=== PATIENT | male | born 1955 | race Caucasian/White ===

== ENCOUNTER 2018-05-10 21:36 | Emergency (ER) | payer SELFPAY ==
--- NOTE | 2018-05-10 22:00 | EDM.PDOC ---
ED HPI GENERAL MEDICAL PROBLEM - General Chief Complaint: Gastrointestinal Problem Stated Complaint: AIR IN STOMACH Time Seen by Provider: 05/10/18 22:00 Source of Information: Reports: Patient, RN, RN Notes Reviewed History Limitations: Reports: Other (forgetful) - History of Present Illness INITIAL COMMENTS - FREE TEXT/NARRATIVE: Pt presents to the ER with c/o abdominal distention. He denies pain. States this has been happening over the past 2 weeks. He states he last had a BM today , has been having runny diarrhea. Patient denies fever or chills, N/V. He denies chest pains or SOB. He states this has not happened to him in the past. Patient states he thinks a needle needs to be put in his belly to let air out. Onset: Gradual Location: Reports: Abdomen Quality: Reports: Pressure Severity: Moderate Improves with: Reports: None Worsens with: Reports: None - Related Data Allergies Allergy/AdvReac Type Severity Reaction Status Date / Time No Known Allergies Allergy Verified 05/10/18 21:40 Home Meds: Home Meds Fenofibrate Nanocrystallized [Fenofibrate] 145 mg PO DAILY 05/10/18 [History] QUEtiapine Fumarate [Quetiapine Fumarate] 200 mg PO BID 05/10/18 [History] fluPHENAZine decanoate [Fluphenazine Decanoate] 1 injection IM Q14D 05/10/18 [ History] predniSONE [Prednisone] 20 mg PO BID 05/10/18 [History] traZODone HCl [Trazodone HCl] 100 mg PO BEDTIME 05/10/18 [History] Past Medical History Psychiatric History: Reports: Anxiety, Depression Social & Family History - Family History Family Medical History: Noncontributory - Tobacco Use Smoking Status *Q: Current Every Day Smoker Years of Tobacco use: 48 Packs/Tins Daily: 1 Used Tobacco, but Quit: No - Caffeine Use Caffeine Use: Reports: Soda - Recreational Drug Use Recreational Drug Use: No ED ROS GENERAL - Review of Systems Review Of Systems: ROS reveals no pertinent complaints other than HPI. ED EXAM, GI/ABD - Physical Exam Exam: See Below Exam Limited By: No Limitations General Appearance: Alert, WD/WN, No Apparent Distress Eyes: Bilateral: Normal Appearance, EOMI Ears: Normal External Exam, Hearing Grossly Normal Nose: Normal Inspection Throat/Mouth: Normal Inspection, Normal Voice, No Airway Compromise Head: Atraumatic, Normocephalic Neck: Normal Inspection, Supple, Non-Tender, Full Range of Motion Respiratory/Chest: No Respiratory Distress, Lungs Clear, Normal Breath Sounds, No Accessory Muscle Use, Chest Non-Tender Cardiovascular: Normal Peripheral Pulses, Regular Rate, Rhythm, No Edema, No Gallop, No JVD, No Rub, Systolic Murmur GI/Abdominal Exam: Normal Bowel Sounds, Soft, Distended. No: Rigid, Tender (Male) Exam: Deferred Rectal (Males) Exam: Deferred Back Exam: Normal Inspection, Full Range of Motion, NT Extremities: Normal Inspection, Normal Range of Motion, Non-Tender, Normal Capillary Refill, No Pedal Edema Neurological: Alert, Oriented Psychiatric: Anxious, Other (talking to himself when others out of the room, poor eye contact) Skin Exam: Warm, Dry, Intact, Normal Color, No Rash Lymphatic: No Adenopathy Course - Vital Signs Last Recorded V/S: Last Vital Signs Temp 96.2 F 05/10/18 21:54 Pulse 119 H 05/10/18 21:54 Resp 20 05/10/18 21:54 BP 128/80 05/10/18 21:54 Pulse Ox 99 05/10/18 21:54 - Orders/Labs/Meds Orders: Active Orders 24 hr Category Date Time Status Enema [RC] ASDIRECTED Care 05/11/18 00:05 Active Peripheral IV Care [RC] . DIRECTED Care 05/10/18 22:06 Active Abdomen 1V Upright [CR] Urgent Exams 05/11/18 05:58 Taken Sodium Chloride 0.9% [Saline Flush] Med 05/10/18 22:05 Active 10 ml FLUSH ASDIRECTED PRN Peripheral IV Insertion Adult [OM.PC] Stat Oth 05/10/18 22:05 Ordered Medication Orders Sodium Chloride (Saline Flush) 10 ml FLUSH ASDIRECTED PRN PRN Reason: Keep Vein Open Last Admin: 05/10/18 22:10 Dose: 10 ml Labs: Laboratory Tests 05/10/18 05/10/18 05/10/18 Range/Units 02:00 22:09 22:09 WBC 11.0 H (5.0-10.0) 10^3/uL RBC 3.78 L (4.6-6.2) 10^6/uL Hgb 11.9 L D (14.0-18.0) g/dL Hct 35.1 L (40.0-54.0) % MCV 92.9 (80-100) fL MCH 31.5 (27.0-34.0) pg MCHC 33.9 (33.0-35.0) g/dL Plt Count 316 D (150-450) 10^3/uL Neut % (Auto) 61.5 (42.2-75.2) % Lymph % (Auto) 26.2 (20.5-50.1) % [place] % (Auto) 11.9 H (2-8) % Eos % (Auto) 0.2 L (1.0-3.0) % Baso % (Auto) 0.2 (0.0-1.0) % Sodium 136 (135-145) mmol/L Potassium 4.0 (3.6-5.0) mmol/L Chloride 101 (101-111) mmol/L Carbon Dioxide 24.0 (21.0-31.0) mmol/L Anion Gap 15.0 BUN 22 H (7-18) mg/dL Creatinine 1.6 H (0.6-1.3) mg/dL Est Cr Clr Drug Dosing 45.90 mL/min Estimated GFR (MDRD) 44 BUN/Creatinine Ratio 13.75 Glucose 162 H (74-105) mg/dL Calcium 9.4 (8.4-10.2) mg/dl Total Bilirubin 0.6 (0.2-1.0) mg/dL AST 23 (10-42) IU/L ALT 22 (10-60) IU/L Alkaline Phosphatase 56 (42-121) IU/L Total Protein 6.4 L (6.7-8.2) g/dl Albumin 3.9 (3.2-5.5) g/dl Globulin 2.5 Albumin/Globulin Ratio 1.56 Amylase 32 (28-100) U/L Lipase 25 (22-51) U/L Urine Color Light yellow (YELLOW) Urine Appearance Clear (CLEAR) Urine pH 7.0 (5.0-9.0) Ur Specific [place] <= 1.005 (1.005-1.030) Urine Protein Negative (NEGATIVE) Urine Glucose (UA) Negative (NEGATIVE) Urine Ketones Negative (NEGATIVE) Urine Occult Blood Trace-intact H (NEGATIVE) Urine Nitrite Negative (NEGATIVE) Urine Bilirubin Negative (NEGATIVE) Urine Urobilinogen 0.2 (0.2-1.0) mg/dL Ur Leukocyte Esterase Negative (NEGATIVE) Urine RBC 0-5 /HPF Urine WBC 0-5 (0-5/HPF) /HPF Ur Epithelial Cells Occasional /HPF Urine Bacteria Occasional (0-FEW/HPF) /HPF Meds: Medications Generic Name Dose Route Start Last Admin Trade Name Freq PRN Reason Stop Dose Admin Sodium Chloride 10 ml 05/10/18 22:05 05/10/18 22:10 Saline Flush FLUSH 10 ml ASDIRECTED PRN Administration Keep Vein Open Discontinued Medications Generic Name Dose Route Start Last Admin Trade Name Freq PRN Reason Stop Dose Admin Sodium Chloride 1,000 mls @ 999 mls/hr 05/10/18 22:42 05/10/18 23:16 Normal Saline IV 05/10/18 23:42 999 mls/hr .BOLUS ONE Administration Iopamidol 100 ml 05/10/18 22:16 Isovue-300 (61%) IVPUSH 05/10/18 22:17 ONETIME ONE Iopamidol 75 ml 05/10/18 22:41 05/10/18 23:04 Isovue-300 (61%) IVPUSH 05/10/18 22:42 75 ml ONETIME ONE Administration Magnesium Citrate 296 ml 05/11/18 00:04 05/11/18 00:14 Citrate Of Magnesia PO 05/11/18 00:05 296 ml ONETIME ONE Administration Polyethylene Glycol/Electrolytes 4,000 ml 05/11/18 02:32 05/11/18 02:43 Golytely PO 05/11/18 02:33 4,000 ml ONETIME ONE Administration - Radiology Interpretation Free Text/Narrative:: CT Abdomen/Pelvis with contrast: FINDINGS: Lower thorax: No acute findings. ABDOMEN: Liver: Scattered hepatic cysts measuring up to 5 mm. Gallbladder and bile ducts: Normal. No calcified stones. No ductal dilation. Pancreas: Normal. No ductal dilation. Spleen: Normal. No splenomegaly. Adrenals: Normal. No mass. Kidneys and ureters: Right intrarenal subcentimeter calculus without hydronephrosis. Stomach and bowel: Normal. No obstruction. No mucosal thickening. Appendix: A normal appendix is identified. PELVIS: Bladder: Unremarkable as visualized. Reproductive: Unremarkable as visualized. ABDOMEN and PELVIS: Intraperitoneal space: Normal. No free air. No significant fluid collection. Bones/joints: No acute fracture. No dislocation. Soft tissues: Small fat containing umbilical hernia. Vasculature: Normal. No abdominal aortic aneurysm. Lymph nodes: Normal. No enlarged lymph nodes. IMPRESSION: No evidence of acute abdominopelvic pathology. COMMENT: Consistent with the [employer]'s Incidental Findings Committee Report (J Am Akira Radiol 2010): Unless the patient's specific circumstances suggest otherwise , any liver lesion 0.5 cm or less, any cystic kidney lesion less than 1.0 cm, and/or any adrenal lesion 1.0 cm or less not otherwise characterized in this report as possessing suspicious or indeterminate imaging features is/are highly likely to be benign and do not require follow-up imaging or biopsy. Thank you for allowing us to participate in the care of your patient. Dictated and Authenticated by: Quintin Ann MD 05/10/2018 11:54 PM Central Time ([place] & [place]) See rad report - Re-Assessments/Exams Free Text/Narrative Re-Assessment/Exam: 05/11/18 01:48 Significant amount of stool noted on the CT. Patient sent to the medical floor for extended ER for enemas and mag citrate. Charge nurse reports after 2 liters of soap suds enemas, the only return is a brownish tinged water. Patient has drank the Mag citrate. Charge nurse instructed to stop enemas, let the patient rest. Departure - Departure Time of Disposition: 07:04 Disposition: Home, Self-Care 01 Condition: Fair Clinical Impression: Constipation Qualifiers: Constipation type: unspecified constipation type Qualified Code(s): K59.00 - Constipation, unspecified - Discharge Information *PRESCRIPTION DRUG MONITORING PROGRAM REVIEWED*: No *COPY OF PRESCRIPTION DRUG MONITORING REPORT IN PATIENT ALISON: No Instructions: High-Fiber Diet, Constipation, Adult, [id number] Forms: ED Department Discharge Additional Instructions: Drink plenty of water May use over the counter stool softeners OR Mirilax as directed for constipation Follow up with your primary care facility - My Orders Last 24 Hours: My Active Orders 05/10/18 22:05 Sodium Chloride 0.9% [Saline Flush] 10 ml FLUSH ASDIRECTED PRN Peripheral IV Insertion Adult [OM.PC] Stat 05/10/18 22:06 Peripheral IV Care [RC] . DIRECTED 05/11/18 00:05 Enema [RC] ASDIRECTED 05/11/18 05:58 Abdomen 1V Upright [CR] Urgent - Assessment/Plan Last 24 Hours: My Active Orders 05/10/18 22:05 Sodium Chloride 0.9% [Saline Flush] 10 ml FLUSH ASDIRECTED PRN Peripheral IV Insertion Adult [OM.PC] Stat 05/10/18 22:06 Peripheral IV Care [RC] . DIRECTED 05/11/18 00:05 Enema [RC] ASDIRECTED 05/11/18 05:58 Abdomen 1V Upright [CR] Urgent
[2018-05-10] MEDS ORDERED: Sodium Chloride 0.9% 10 ML Syringe FLUSH PRN (22:05)
[2018-05-10] MEDS ORDERED: Iopamidol 612 MG/ML 100 ML Bottle IVPUSH ONE (22:16)
[2018-05-10] MEDS ORDERED: Iopamidol 612 MG/ML 75 ML Bottle IVPUSH ONE (22:41)
[2018-05-10] MEDS ORDERED: Sodium Chloride 0.9% 1,000 ML IV ONE (22:42)
[2018-05-11] MEDS ORDERED: Magnesium Citrate Solution 296 ML Bottle PO ONE (00:04)
[2018-05-11] MEDS ORDERED: Polyethylene Glycol/Electrolytes 4,000 ML Bottle PO ONE (02:32)
--- NOTE | 2018-05-11 07:04 | CR ---
Clinical history: 62-year-old male "overnight" ER for abdominal discomfort (" no acute abdominal pelvic abnormality" CT scan 2251hr, yesterday). Post cleansing enema. Dictation: Upright abdominal film (x2) confirms air-fluid levels across the course of normal caliber colon. No stool. Residual IV contrast in the urinary bladder lower mid pelvis. No foreign bodies, abdominal soft tissue mass lesion, pathologic calcifications or signs of mechanical small bowel obstruction. No free intraperitoneal air. Lung bases clear. CONCLUSION: Negative exam.
== END 2018-05-11 07:30 | disposition home or self-care (01) ==
LOC: DL.ED 21:36
DX: K59.00 Constipation, unspecified (principal); F17.210 Nicotine dependence, cigarettes, uncomplicated; F41.9 Anxiety disorder, unspecified; F32.9 Major depressive disorder, single episode, unspecified; Z79.899 Other long term (current) drug therapy
CPT/HCPCS: 36415; 74018; 74177; 80053; 81001; 82150; 83690; 85025; 96365; 99284; A9270; J7030; Q9967

== ENCOUNTER 2018-08-16 10:22 | Emergency (ER) | payer SELFPAY ==
--- NOTE | 2018-08-16 10:41 | EDM.PDOCBH ---
ED HPI GENERAL MEDICAL PROBLEM - General Chief Complaint: Behavioral/Psych Stated Complaint: MEDICAL CLEARANCE Time Seen by Provider: 08/16/18 10:40 Source of Information: Reports: Patient, Old Records, RN, RN Notes Reviewed, Other ([facility] psychology clinician) History Limitations: Reports: No Limitations - History of Present Illness INITIAL COMMENTS - FREE TEXT/NARRATIVE: Pt sent to ER by [facility] for medical screening exam prior to being transferred to [facility] for psychiatric admission due to pt's noncompliance with his medications. Pt states that he is here for a high blood pressure check up, and that he did indeed stop all of his medications about 3 days ago because he is normal and is not crazy. Pt denies any other complaints. Onset: Unknown/Unsure Duration: Chronic Location: Reports: Generalized Associated Symptoms: Reports: No Other Symptoms - Related Data Allergies Allergy/AdvReac Type Severity Reaction Status Date / Time No Known Allergies Allergy Verified 08/16/18 11:25 Home Meds: Home Meds Fenofibrate Nanocrystallized [Fenofibrate] 145 mg PO DAILY 05/10/18 [History] QUEtiapine Fumarate [Quetiapine Fumarate] 200 mg PO BID 05/10/18 [History] fluPHENAZine decanoate [Fluphenazine Decanoate] 1 injection IM Q14D 05/10/18 [ History] predniSONE [Prednisone] 20 mg PO BID 05/10/18 [History] traZODone HCl [Trazodone HCl] 100 mg PO BEDTIME 05/10/18 [History] Past Medical History Cardiovascular History: Reports: Hypertension Psychiatric History: Reports: Anxiety, Depression, Psych Hospitalization(s), Psychosis Social & Family History - Family History Family Medical History: Unobtainable - Tobacco Use Smoking Status *Q: Current Every Day Smoker Tobacco Use Within Last Twelve Months: Cigarettes - Caffeine Use Caffeine Use: Reports: Soda - Alcohol Use Alcohol Use History: No - Recreational Drug Use Recreational Drug Use: No - Living Situation & Occupation Living situation: Reports: Alone ED ROS GENERAL - Review of Systems Review Of Systems: ROS reveals no pertinent complaints other than HPI. ED EXAM, BEHAVIORAL HEALTH - Physical Exam Exam: See Below Exam Limited By: No Limitations General Appearance: Alert, WD/WN, No Apparent Distress Eye Exam: Bilateral Eye: Normal Inspection Ears: Normal External Exam, Hearing Grossly Normal Nose: Normal Inspection, Normal Mucosa, No Blood Throat/Mouth: Normal Inspection, Normal Lips, Normal Voice, No Airway Compromise Head: Atraumatic, Normocephalic Neck: Normal Inspection, Supple, Non-Tender, Full Range of Motion Respiratory/Chest: No Respiratory Distress, Lungs Clear, Normal Breath Sounds, No Accessory Muscle Use, Chest Non-Tender Cardiovascular: Regular Rate, Rhythm, No Edema GI/Abdominal: Normal Bowel Sounds, Soft, Non-Tender, No Organomegaly, No Distention, No Abnormal Bruit, No Mass Back Exam: Normal Inspection Extremities: Normal Inspection Neurological: Alert, CN II-XII Intact, Normal Gait, No Motor/Sensory Deficits, Oriented x 3 Psychiatric: Oriented, Flat Affect, Paranoid Thoughts. No: Homicidal Thoughts, Suicidal Plan, Suicidal Thoughts, Pressured Speech, Threatening Behavior Skin Exam: Warm, Dry, Intact, Normal color, No rash COURSE, BEHAVIORAL HEALTH COMP - Course Vital Signs: Last Vital Signs Temp 99.7 F 08/16/18 10:42 Pulse 94 08/16/18 10:42 Resp 20 08/16/18 10:42 BP 155/87 H 08/16/18 10:42 Pulse Ox 98 08/16/18 10:42 Orders, Labs, Meds: Active Orders 24 hr Category Date Time Status TSH ULTRASENSITIVE [CHEM] Stat Lab 08/16/18 10:50 Received UA W/MICROSCOPIC [URIN] Stat Lab 08/16/18 10:59 Results Laboratory Tests 08/16/18 08/16/18 08/16/18 Range/Units 10:50 10:50 10:59 WBC 9.6 (5.0-10.0) 10^3/uL RBC 5.04 (4.6-6.2) 10^6/uL Hgb 15.4 D (14.0-18.0) g/dL Hct 44.6 (40.0-54.0) % MCV 88.5 D (80-100) fL MCH 30.6 (27.0-34.0) pg MCHC 34.5 (33.0-35.0) g/dL Plt Count 340 (150-450) 10^3/uL Neut % (Auto) 62.6 (42.2-75.2) % Lymph % (Auto) 25.1 (20.5-50.1) % [place] % (Auto) 11.4 H (2-8) % Eos % (Auto) 0.5 L (1.0-3.0) % Baso % (Auto) 0.4 (0.0-1.0) % Sodium 136 (135-145) mmol/L Potassium 3.9 (3.6-5.0) mmol/L Chloride 104 (101-111) mmol/L Carbon Dioxide 21.0 (21.0-31.0) mmol/L Anion Gap 14.9 BUN 23 H (7-18) mg/dL Creatinine 1.2 (0.6-1.3) mg/dL Est Cr Clr Drug Dosing 61.20 mL/min Estimated GFR (MDRD) > 60 BUN/Creatinine Ratio 19.16 Glucose 105 (74-105) mg/dL Calcium 9.9 (8.4-10.2) mg/dl Magnesium 2.1 (1.8-2.5) mg/dL Total Bilirubin 0.8 (0.2-1.0) mg/dL AST 31 (10-42) IU/L ALT 31 (10-60) IU/L Alkaline Phosphatase 71 (42-121) IU/L Total Protein 8.1 (6.7-8.2) g/dl Albumin 4.9 (3.2-5.5) g/dl Globulin 3.2 Albumin/Globulin Ratio 1.53 Urine Color Yellow (YELLOW) Urine Appearance Slightly cloudy (CLEAR) Urine pH 5.5 (5.0-9.0) Ur Specific [place] 1.025 (1.005-1.030) Urine Protein Trace H (NEGATIVE) Urine Glucose (UA) Negative (NEGATIVE) Urine Ketones Negative (NEGATIVE) Urine Occult Blood Trace-intact H (NEGATIVE) Urine Nitrite Negative (NEGATIVE) Urine Bilirubin Negative (NEGATIVE) Urine Urobilinogen 0.2 (0.2-1.0) mg/dL Ur Leukocyte Esterase Negative (NEGATIVE) Salicylates < 4 mg/dL Urine Opiates Screen (NEGATIVE) Ur Oxycodone Screen (NEGATIVE) Urine Methadone Screen (NEGATIVE) Acetaminophen < 10 ug/mL Ur Barbiturates Screen (NEGATIVE) U Tricyclic Antidepress (NEGATIVE) Ur Phencyclidine Scrn (NEGATIVE) Ur Amphetamine Screen (NEGATIVE) U Methamphetamines Scrn (NEGATIVE) Urine MDMA Screen (NEGATIVE) U Benzodiazepines Scrn (NEGATIVE) Urine Cocaine Screen (NEGATIVE) U Marijuana (THC) Screen (NEGATIVE) Ethyl Alcohol < 5 mg/dL 08/16/18 Range/Units 10:59 WBC (5.0-10.0) 10^3/uL RBC (4.6-6.2) 10^6/uL Hgb (14.0-18.0) g/dL Hct (40.0-54.0) % MCV (80-100) fL MCH (27.0-34.0) pg MCHC (33.0-35.0) g/dL Plt Count (150-450) 10^3/uL Neut % (Auto) (42.2-75.2) % Lymph % (Auto) (20.5-50.1) % [place] % (Auto) (2-8) % Eos % (Auto) (1.0-3.0) % Baso % (Auto) (0.0-1.0) % Sodium (135-145) mmol/L Potassium (3.6-5.0) mmol/L Chloride (101-111) mmol/L Carbon Dioxide (21.0-31.0) mmol/L Anion Gap BUN (7-18) mg/dL Creatinine (0.6-1.3) mg/dL Est Cr Clr Drug Dosing mL/min Estimated GFR (MDRD) BUN/Creatinine Ratio Glucose (74-105) mg/dL Calcium (8.4-10.2) mg/dl Magnesium (1.8-2.5) mg/dL Total Bilirubin (0.2-1.0) mg/dL AST (10-42) IU/L ALT (10-60) IU/L Alkaline Phosphatase (42-121) IU/L Total Protein (6.7-8.2) g/dl Albumin (3.2-5.5) g/dl Globulin Albumin/Globulin Ratio Urine Color (YELLOW) Urine Appearance (CLEAR) Urine pH (5.0-9.0) Ur Specific [place] (1.005-1.030) Urine Protein (NEGATIVE) Urine Glucose (UA) (NEGATIVE) Urine Ketones (NEGATIVE) Urine Occult Blood (NEGATIVE) Urine Nitrite (NEGATIVE) Urine Bilirubin (NEGATIVE) Urine Urobilinogen (0.2-1.0) mg/dL Ur Leukocyte Esterase (NEGATIVE) Salicylates mg/dL Urine Opiates Screen Negative (NEGATIVE) Ur Oxycodone Screen Negative (NEGATIVE) Urine Methadone Screen Negative (NEGATIVE) Acetaminophen ug/mL Ur Barbiturates Screen Negative (NEGATIVE) U Tricyclic Antidepress Negative (NEGATIVE) Ur Phencyclidine Scrn Negative (NEGATIVE) Ur Amphetamine Screen Negative (NEGATIVE) U Methamphetamines Scrn Negative (NEGATIVE) Urine MDMA Screen Negative (NEGATIVE) U Benzodiazepines Scrn Negative (NEGATIVE) Urine Cocaine Screen Negative (NEGATIVE) U Marijuana (THC) Screen Negative (NEGATIVE) Ethyl Alcohol mg/dL Medical Clearance: 08/16/18 11:20 No medical contraindication to being admitted to inpatient psychiatric facility as this time. Discharge vs Psych Eval/Treatment:: 08/16/18 11:25 Pt accepted to [facility] by Dr. Amairani Beauchamp. Departure - Departure Time of Disposition: 11:25 Disposition: DC/Tfer to Psych Hosp/Unit 65 Condition: Fair Clinical Impression: Noncompliance with medication regimen Psychosis Qualifiers: Psychosis type: unspecified psychosis type Qualified Code(s): F29 - Unspecified psychosis not due to a substance or known physiological condition - Discharge Information *PRESCRIPTION DRUG MONITORING PROGRAM REVIEWED*: No *COPY OF PRESCRIPTION DRUG MONITORING REPORT IN PATIENT ALISON: No Forms: ED Department Discharge, Interfacility Transfer EMTALA - My Orders Last 24 Hours: My Active Orders 08/16/18 10:50 TSH ULTRASENSITIVE [CHEM] Stat 08/16/18 10:59 UA W/MICROSCOPIC [URIN] Stat - Assessment/Plan Last 24 Hours: My Active Orders 08/16/18 10:50 TSH ULTRASENSITIVE [CHEM] Stat 08/16/18 10:59 UA W/MICROSCOPIC [URIN] Stat
[2018-08-16 11:17] LABS: ANION GAP 14.9; CHLORIDE,CL 104 mmol/L (101-111); SODIUM,NA 136 mmol/L (135-145)
[2018-08-16 11:18] LABS: ACETAMINOPHEN < 10 ug/mL
== END 2018-08-16 12:24 ==
LOC: DL.ED 10:22
DX: F29 Unspecified psychosis not due to a substance or known physiological condition (principal); I10 Essential (primary) hypertension; F41.9 Anxiety disorder, unspecified; F32.9 Major depressive disorder, single episode, unspecified; F17.210 Nicotine dependence, cigarettes, uncomplicated; Z91.14 Patient's other noncompliance with medication regimen; Z79.899 Other long term (current) drug therapy
CPT/HCPCS: 36415; 80053; 80305; 81001; 83735; 84443; 85025; 99284; G0480